=== PATIENT | male | born 1945 | race Caucasian/White ===

== ENCOUNTER 2019-01-06 11:25 | Day surgery (SDC) ==
[2018-12-25 14:23] LABS: INR 1.07; PROTIME 14.8 Seconds (11.0-16.0)
[2018-12-25 14:24] LABS: PTT 28.4 Seconds (22.3-41.8)
[2018-12-25 14:26] LABS: HEMATOCRIT 43.3 % (42.0-52.0); HEMOGLOBIN 14.2 g/dL (14.0-18.0); MCH 31.1 PG (27-31); MCHC 32.8 g/dL (33-37); MCV 94.7 FL (81-99); MPV 9.3 FL (7.4-10.4); RBC 4.57 XMIL (4.7-6.1); RDW 13.5 % (11.5-14.5); WBC 11.02 X1000 (4.8-10.8)
[2018-12-25 14:55] LABS: CALCIUM 9.2 mg/dL (8.8-10.2); CREATININE 1.8 mg/dL (0.7-1.2); POTASSIUM 4.9 mmol/L (3.5-5.1)
[~2019-01-06 11:25] MED LIST: DIPRIVAN 1% ONE; FENTANYL ONE; NORCURON ONE; QUELICIN (DOSE) ONE; SODIUM CHLORIDE 0.9% 10 ML ONE; XYLOCAINE-MPF 2% ONE
[2019-01-06] MEDS ORDERED: KEFZOL 1 GM/D5W 2 GM/100 ML IVPB ONE (12:29)
[2019-01-06] MEDS ORDERED: LR 500 ML ONE (12:29)
[2019-01-06] MEDS ORDERED: ROBINUL ONE ×2 (13:49→14:01)
[2019-01-06] MEDS ORDERED: NEOSTIGMINE ONE (14:01)
[2019-01-06] MEDS ORDERED: EPHEDRINE ONE (14:29)
[2019-01-06] MEDS ORDERED: NS 1,000 ML ONE (15:39)
--- NOTE | 2019-01-06 16:03 | Diag Imaging Result Doc PS360 ---
EXAM: CHEST-PORTABLE 01/06/2019 HISTORY: Post Nephro Rt TECHNIQUE: AP portable at 1552 COMMENT: There is cardiomegaly. There is increased pulmonary vascularity. There is apparent volume loss and opacity in the lingula and left lower lobe which are worse than on 06/20/2018. IMPRESSION: Atelectasis versus pneumonia in the lingula and left lower lobe. Cardiomegaly and possible mild pulmonary edema. Electronically signed by Low Urias 01/06/2019 4:00 PM
[2019-01-06] MEDS: DILAUDID ONE ×2 (16:35→16:40)
[2019-01-06] MEDS ORDERED: PHENERGAN PO PRN (16:45)
[2019-01-06] MEDS ORDERED: NORCO-5 PO PRN (16:45)
[2019-01-06] MEDS ORDERED: OFIRMEV 1000 MG/ISOTONIC SOLN 1,000 MG/100 ML BOTTLE IV PRN (16:45)
[2019-01-06] MEDS ORDERED: NORCO-7.5 PO PRN (16:45)
[2019-01-06] MEDS ORDERED: NS 1,000 ML IV SCH (16:45)
[2019-01-06] MEDS ORDERED: LABETALOL IV PRN (16:45)
[2019-01-06] MEDS ORDERED: ZOFRAN IV PRN (16:45)
[2019-01-06 17:02] LABS: HEMATOCRIT 40.1 % (42.0-52.0); MCH 30.6 PG (27-31); MCHC 32.4 g/dL (33-37); MCV 94.4 FL (81-99); MPV 9.1 FL (7.4-10.4); RBC 4.25 XMIL (4.7-6.1); RDW 13.5 % (11.5-14.5); WBC 11.21 X1000 (4.8-10.8)
[2019-01-06 17:25] LABS: CALCIUM 9.2 mg/dL (8.8-10.2); CREATININE 1.7 mg/dL (0.7-1.2)
[2019-01-06] MEDS: NORCO-10 PO PRN (19:57)
[2019-01-06] MEDS: DILAUDID IV PRN (20:29)
[2019-01-06] MEDS: COLACE PO SCH (20:29)
[2019-01-06] MEDS: KEFZOL 2 GM/D5W 2 GM/50 ML IVPB IV SCH (20:30)
[2019-01-06] MEDS: HUMALOG SUBQ SCH (23:43)
[2019-01-07] MEDS: DILAUDID IV PRN (00:17)
[2019-01-07] MEDS: KEFZOL 2 GM/D5W 2 GM/50 ML IVPB IV SCH (04:46)
[2019-01-07] MEDS: HUMALOG SUBQ SCH ×2 (07:45→11:56)
--- NOTE | 2019-01-07 08:29 | PROGRESS NOTE ---
DATE: 01/07/2019 SUBJECTIVE: The patient reports a good night overnight. His pain is adequately controlled. His Aguilar catheter was removed this morning. He had not voided yet. OBJECTIVE: Vital Signs: T 98.3 degrees, P 78, BP 136/83. His urine output was recorded in the amount of 753 mL. General: No acute distress. Abdomen: Nontender, nondistended. : Bladder nontender to palpation. Back: No CVA tenderness. Chromic sutures are intact with op site dressing over the incision. PERTINENT LABORATORY DATA: White cell count is 11,000. Hematocrit is 40 on 01/06/2019. Creatinine is 1.7. His chest x-ray on 01/06/2019 in the recovery room showing no evidence of pneumothorax. ASSESSMENT AND PLAN: A 73-year-old male status post right percutaneous nephrostolithotomy with cystoscopy and ureteral stent placement who is doing well. His labs are still pending. I have discussed with the patient that once he voids and continues to have adequate pain control, and his labs are okay, he will be ready for discharge. PLAN: 1. He will go home once voids. 2. He will go home with prescriptions for Percocet 10 p.r.n. (#15). Bactrim DS b.i.d. (#15). 3. Ditropan 5 mg 3 times a day as needed (#30). 4. I instructed him to resume his Eliquis on 01/10/2019. 5. I cleared him for his rehabilitation of his right knee starting 01/10/2019. 6. I will plan on seeing him in 9 to 10 days for cystoscopy with right ureteral stent removal in the office. cc: Paul Batres MD
[2019-01-07] MEDS: COLACE PO SCH (08:32)
[2019-01-07] MEDS: NORCO-10 PO PRN (11:02)
[2019-01-07 11:27] VITALS: BP 118/66
[2019-01-08] MEDS ORDERED: SPIRIVA INH SCH (07:30)
--- NOTE | 2019-02-18 14:21 | OPERATIVE NOTE ---
PROCEDURE DATE: 01/06/2019 SURGEON: Dr. Paul Batres. PREOPERATIVE DIAGNOSIS: Large right renal pelvis stones, abdominal pain, and microscopic hematuria. POSTOPERATIVE DIAGNOSIS: Large right renal pelvis stones, abdominal pain, and microscopic hematuria. PROCEDURES: Cystoscopy, placement of right ureteral catheter, antegrade percutaneous nephrostomy access, right percutaneous nephrostolithotomy, cystoscopy with right 6-Turkish-24 - cm ureteral stent placement in retrograde fashion. INDICATIONS: A 73-year-old male with medical comorbidities including COPD who had presented with microscopic hematuria and abdominal pain. He underwent imaging which revealed several large right renal pelvis stones. The largest stone was measured at 3.3 cm. He was counseled on staged ESWL versus PCNL versus observation versus a pyelolithotomy. He wants to proceed with PCNL. FINDINGS: The 3.[address] scan was actually several stones with the largest being approximately 2.5 cm. Multiple stone fragments were sent off for analysis. PROCEDURE IN DETAIL: After obtaining informed consent, patient was brought to the operating room. Perioperative antibiotics and general endotracheal anesthesia were administered. He was placed in modified frogleg position with his genitals prepped in sterile fashion. A 16-Turkish flexible cystoscope was used to gain access to the prostatic urethra and the bladder which were briefly examined. He had no evidence of obvious mucosal lesions. He had moderate trabeculations. No sizable diverticula. No stones seen within the bladder lumen. Attention was turned to the right ureteral orifice which was cannulated with a PTFE wire that was in turn advanced to presumed level of the renal pelvis. The flexible cystoscope was then removed, and a 5-Turkish open-ended ureteral catheter was advanced over the wire. Subsequent to that, a flexible cystoscope was reinserted adjacent to the open-ended ureteral catheter to confirm that there was no coiling in the bladder and the ureteral catheter was indeed in the ureter which it was. Following that, the cystoscope was removed. A 16-Turkish Aguilar catheter was introduced with 10 mL of sterile water placed in the balloon. Zero silk suture was used to secure the open-ended ureteral catheter to the Aguilar catheter. He was then placed in prone position making sure his upper and lower extremities were appropriately padded. He was reprepped and redraped. Fluoroscopy was used in anterior-posterior orientation as well as the 20 degree angle. We performed retrograde pyelogram by introducing 50% diluted Omnipaque dye via the previously placed open-ended ureteral catheter. It had delineated the large renal pelvis stones. We elected to use the right lower pole reddy for access. A finder needle was used to make a small stab incision in the skin and introduce it under fluoroscopic guidance into what appeared to be the tip of the lower pole reddy. We confirmed that by the return of light pink fluid consistent with bloody urine. This was followed by introduction of a Sensor wire. The undergraduate internship coiled up in the renal pelvis. Following that, the needle was removed, and the incision was extended to approximately 1.5 cm. I then used sequential dilators with 8, 10 and 12-Turkish sheaths with the tip of the sheath confirmed to come to the edge of the lower pole calyx by fluoroscopy. This was followed by introduction of the dual sheath catheter, and subsequent removal of the inner sheath. This allowed us to place a PTFE wire alongside of the Sensor wire hence given this one safety wire and one working wire. Following that, NephroMax balloon was used with its radio back tip introduced at the distal edge of the lower pole calyx to dilate the tract to 30-Turkish. This was again confirmed under fluoroscopy. I then introduced 30- Turkish resectoscope sheath. This was followed by introduction of a nephroscope via the sheath. We were fortunate and were at the right level in the lower pole looking at one of the smaller stones. Perc N [place] was used to remove a couple smaller stones. The larger stone was addressed with ultrasonic wand. As the stone was broken up, the fragments were evacuated. Upon completion and removal of all visible stones, I switched to a flexible cystoscope and perform an antegrade pyelogram. It revealed no evidence of sizable filling defects. I then examine each calyx under direct vision, and there was a 4 to 5 mm fragment that I was able to remove with 0 Nitinol basket. Following that, I examined the ureteropelvic junction. There was no evidence of stones within the UPJ area. There was no evidence of UPJ injury. The cystoscope and the resectoscope sheaths were then removed. 3-0 chromic sutures were used to closed the incision x3. He was then placed back on the stretcher in the lithotomy position, and moved back on the table. He was reprepped. A 21- Turkish rigid cystoscope was then used to gain access to the prostatic urethra and the bladder. I introduced the Sensor wire into the right ureteral orifice, and advanced it to the level of the renal pelvis as confirmed by fluoroscopy. In a standard fashion 6-Turkish, 24 cm stent was then placed over the wire via the cystoscope with the proximal coil position confirmed fluoroscopically and distal coil directly visualized. The string was detached from the stent. Aguilar catheter was then placed, and bladder was drained. He was extubated taken to PACU for further recovery. ESTIMATED BLOOD LOSS: 300 mL. COMPLICATIONS: None. DRAINS: 6-Turkish 24 cm ureteral stent and 16-Turkish Aguilar catheter. SPECIMENS: Multiple kidney stone fragments which were sent off for analysis. DISPOSITION: To PACU and subsequently floor with chest x-ray and blood work in PACU to rule out pneumothorax or significant bleeding. cc: Paul Batres MD
== END 2019-01-07 12:28 | disposition home or self-care (01) ==
LOC: 4N 11:25 → OR 11:25
PROVIDERS: ATTEND Urology
CPT/HCPCS: 71010; 71045; 76000; 80048; 82360; 82948; 85027; 85610; 85730; 87088; 88300; 94761; 94799; A9270; J0330; J0690; J1170; J2405; J3010; J7030; J7120; Q9966; Q9967; XXXXX

== ENCOUNTER 2019-01-28 09:34 | Inpatient (IN) ==
[2019-01-28] MEDS ORDERED: DUONEB (A & A) INH PRN (12:05)
[2019-01-28] MEDS ORDERED: VANCOMYCIN IV PER PHARMACY MISC SCH (12:15)
--- NOTE | 2019-01-28 12:27 | Diag Imaging Result Doc PS360 ---
CHEST-PORTABLE - 01/28/2019 INDICATION: Pneumonia COMPARISON: 01/06/2019 FINDINGS: Stable cardiomegaly and pulmonary vascular congestion. There has been slight improvement in the diffuse interstitial infiltrates/pulmonary edema, with some clearance of the right upper lobe. The lung bases remain stable. No significant pleural effusion. IMPRESSION: Improvement in the pulmonary edema. Electronically signed by Fred Pina 01/28/2019 12:25 PM
[2019-01-28 13:18] LABS: ALLEN TEST NO; BE 2.1 mmoll (-3.0-3.0); BLOOD TYPE ARTERIAL; HCO3-(ACT) 26.5 mmoll (20.0-26.0); O2(CT) 15.5 mL/dL (15.0-23.0); O2HB 94.1 % (95.0-99.0); PCO2(98.6) 33 mmHg (35-45); PO2(98.6) 70 mmHg (60-100); SAMPLE BLOOD; THB 11.7 g/dL (11.5-17.4); pH(98.6) 7.49 (7.35-7.45)
[2019-01-28 13:19] LABS: MODALITY CANNULA
[2019-01-28] MEDS: MAXIPIME 1 GM in NS 50 ML IV SCH ×2 (13:23→23:40)
[2019-01-28 13:43] LABS: BASO# 0.03 X1000 (0.0-0.2); BASO% 0.3 % (0.0-0.8); EOS# 0.16 X1000 (0.0-0.7); EOS% 1.5 % (0.0-10.0); HEMATOCRIT 36.4 % (42.0-52.0); HEMOGLOBIN 11.9 g/dL (14.0-18.0); IMM GRAN# 0.04 X1000 (0.0-0.04); IMM GRAN% 0.4 % (0.0-0.5); LYMPH# 0.99 X1000 (1.2-3.4); LYMPH% 9.3 % (20.5-51.1); MCH 30.4 PG (27-31); MCHC 32.7 g/dL (33-37); MCV 92.9 FL (81-99); MONO# 0.92 X1000 (0.11-0.59); MONO% 8.6 % (1.7-9.3); MPV 9.7 FL (7.4-10.4); NEUT# 8.51 X1000 (1.4-6.5); NEUT% 79.9 % (42.2-75.2); PLT 202 X1000 (130-400); RBC 3.92 XMIL (4.7-6.1); RDW 13.6 % (11.5-14.5); WBC 10.65 X1000 (4.8-10.8)
[2019-01-28 14:00] LABS: ALB/GLOB RATIO 0.8; ALBUMIN 3.4 g/dL (3.5-5.0); CALCIUM 9.3 mg/dL (8.8-10.2); CREATININE 1.6 mg/dL (0.7-1.2); POTASSIUM 4.6 mmol/L (3.5-5.1); TOTAL BILIRUBIN 0.38 mg/dL (0.20-1.00); TOTAL PROTEIN 7.6 g/dL (6.3-8.3)
--- NOTE | 2019-01-28 14:02 | EKG Report ---
Test Performed on : 01/28/2019 1:54:56 PM Test Reason : afib Blood Pressure : / mmHG Vent. Rate : 070 BPM Atrial Rate : 070 BPM P-R Int : 236 ms QRS Dur : 098 ms QT Int : 408 ms P-R-T Axes : 097 -48 -08 degrees QTc Int : 440 ms Sinus rhythm. with 1st degree AV block. Pulmonary disease pattern Left anterior fascicular block Abnormal ECG When compared with ECG of 12-MAR-2014 16:51, fusion complexes are no longer present MO interval has increased Vent. rate has decreased BY [address] now depressed in Inferior leads T wave inversion now evident in Inferior leads Confirmed by Becka EPPS, Campbell Joseph ([id number]) on 01/28/2019 5:31:47 PM
--- NOTE | 2019-01-28 14:13 | HISTORY AND PHYSICAL ---
CHIEF COMPLAINT: Direct admission from Dr. Mendez Fontenot with bilateral pneumonia and generalized weakness. HISTORY OF PRESENT ILLNESS: Mr. Loera is a 73-year-old, male who carries a past medical history of end-stage COPD, on home O2 at 2.5 L. He has had bilateral 1/3 lobectomies secondary to his emphysema, atrial fibrillation, on Eliquis, diabetes mellitus type 2, hypertension, dyslipidemia, osteoarthritis, recent right percutaneous nephrostolithotomy with cystoscopy and urethral stent placement and removal by Dr. Batres. He still has his stitches in place on his back. He is requesting to have those removed as well. He had a recent quadriceps tear from his right knee. He has been doing rehabilitation for that but over the past couple of weeks, he has had an increase in weakness with 2 reported falls at home. He has been treated for pneumonia by Dr. Mendez Fontenot. Imaging in his office revealed bilateral infiltrates, consistent with pneumonia. He has had a 12 pound weight loss in 3 months. He does report being cold with some chills but not necessarily rigors. He denied any fever. He is sleeping anywhere between 15 and 16 hours out of the day. He has been on Levaquin and clindamycin since the for his pneumonia. He continues to get worse. He does report a very productive cough. We will admit him and initiate him on broader spectrum antibiotics with his recent admission to the hospital, currently pending diagnostics and laboratory data. PAST MEDICAL HISTORY: 1. End-stage COPD, on home O2. 2. Atrial fibrillation, on Eliquis, status post ablation in May 2018. 3. Kidney stones. 4. Diabetes mellitus. 5. Hypertension. 6. Dyslipidemia. 7. Osteoarthritis. 8. Recent right quadriceps tear that has been recently operated on and finished rehab. 9. Diabetic neuropathy. 10. Chronic systolic congestive heart failure. 11. Chronic kidney disease stage 3. 12. Anemia. 13. Sleep apnea. 14. Bilateral carotid artery disease. PAST SURGICAL HISTORY: 1. Lung volume reduction surgery at [place] where 1/3 of his lung was removed to assist in his breathing. 2. Ablation in May 2018 for his atrial fibrillation. 3. Recent quadriceps tear to his right side. 4. Lithotripsy with stent removal by Dr. Batres. 5. Back surgery. 6. Right shoulder surgery. REVIEW OF SYSTEMS: Twelve-point review of systems completed and negative except for those mentioned in the HPI. MEDICATIONS: Home medications have not been verified. PHYSICAL EXAMINATION: VITAL SIGNS: Temperature is 97.8 degrees, respirations have not been recorded, heart rate is 65, blood pressure 111/50, O2 is 96% on 3 L nasal cannula. GENERAL: Mr. Loera is a [id number], 73-year-old, male who is sitting up on the bed in no acute distress, somewhat agitated but just ready to be over his illness. He just expresses concerns. HEENT: Atraumatic, normocephalic. PERRL. NECK: Supple. Trachea midline. CARDIOVASCULAR: S1, S2 appreciated. No murmurs, gallops, or rubs noted. RESPIRATORY: Lung sounds bilaterally decreased in the bases. Decreased air flow throughout. GASTROINTESTINAL: Soft, nontender, nondistended. Does complain of some right flank pain. : He reports leakage prior to just feeling the need to void. NEUROLOGIC: No focal deficits noted. However, he did complain of some dizziness over the weekend prior to one of his falls. LABORATORY AND DIAGNOSTIC DATA: Pending. ASSESSMENT AND PLAN: 1. Bilateral pneumonia, failed outpatient treatment. Patient did have a recent hospitalization. We will treat him with broad-spectrum antibiotics. CBC and CMP are currently pending. We have placed him on vancomycin and cefepime. Continue on supplemental oxygen, bronchodilators, and aggressive pulmonary toilet. 2. Atrial fibrillation. Patient is on Eliquis. We will continue any home medications as soon as they are verified. 3. End-stage chronic obstructive pulmonary disease, on home oxygen. We will continue with bronchodilators and supplemental oxygen. 4. Hypertension. 5. Hyperlipidemia. 6. Diabetes mellitus. We will continue on pattern of blood sugars and sliding scale insulin. 7. Recent kidney stone lithotripsy with Dr. Batres, status post stent removal on the right. He is complaining of right flank pain. We will check a urinalysis, possibly do a CT scan if he continues to complain of pain or if there are any signs of a urinary tract infection. 8. Generalized weakness over the last 2 weeks. The patient normally ambulates with a walker. However, he has had 2 falls over the weekend. He had a recent quadriceps tear with repair and has been working with physical therapy. He did get dizzy with one of the episodes of his falls but that resolved. We will consult physical therapy to work with the patient, possibly home with home health and physical therapy. 9. Further recommendations to follow physician evaluation, laboratory and diagnostic data. Dictated by JEANNETTE Garcia for Grady Deluna MD cc: MD Mendez Freed MD I have seen and examined Mr Loera who presents from Dr Fontenot office as a direct admit. He has presumably failed outpatient pneumonia treatment. I have reviewed his labs and imagining studies. I agree with the above HPI and the plan reflects my opinion discussed with the BEARING GRINDER. ROMIE BENDER
[2019-01-28] MEDS ORDERED: VANCOMYCIN 2,000 MG in NS 500 ML IV ONE (15:00)
[2019-01-28] MEDS: DUONEB (A & A) INH SCH ×3 (15:39→23:03)
[2019-01-28 17:39] LABS: URINE SOURCE CLEAN CATCH
[2019-01-28 17:42] LABS: BILIRUBIN URINE NEGATIVE (NEGATIVE); BLOOD URINE MODERATE (NEGATIVE); COLOR YELLOW; GLUCOSE URINE NEGATIVE (NEGATIVE); KETONE URINE NEGATIVE (NEGATIVE); LEUKOCYTES URINE LARGE (NEGATIVE); NITRITE URINE NEGATIVE (NEGATIVE); PH URINE 5.5; PROTEIN URINE 50 mg/dL (NEGATIVE); SP GRAVITY URINE 1.011; TURBIDITY URINE TURBID (CLEAR); UROBILINOGEN URINE NORMAL (NORMAL)
[2019-01-28] MEDS: HUMALOG SUBQ SCH ×2 (17:58→21:00)
[2019-01-28] MEDS: AVODART PO SCH (17:59)
[2019-01-28 18:09] LABS: UR EPITHELIAL CELLS <10 /HPF (<10); URINE BACTERIA NEGATIVE /HPF; URINE RBC <10 /HPF (<10); URINE WBC TNTC /HPF (<10)
[2019-01-28 18:11] LABS: URINE CASTS NONE SEEN; URINE CRYSTALS NONE SEEN; URINE YEAST PRESENT
[2019-01-28] MEDS: FLOMAX PO SCH (20:59)
[2019-01-28] MEDS ORDERED: RESTORIL PO ONE (21:53)
[2019-01-28] MEDS: NORCO-7.5 PO PRN (22:05)
[2019-01-29] MEDS: DUONEB (A & A) INH SCH ×4 (03:46→15:38)
[2019-01-29] MEDS: HUMALOG SUBQ SCH ×4 (06:16→21:54)
--- NOTE | 2019-01-29 06:46 | Diag Imaging Result Doc PS360 ---
CHEST-PORTABLE - 01/29/2019 INDICATION: Pneumonia COMPARISON: 01/28/2019 FINDINGS: Stable COPD. Stable surgical changes of the lung apices. There is improved aeration of the left lung base. No new infiltrates. No large pleural effusion. Heart size is normal. IMPRESSION: Improvement from prior. Electronically signed by Fred Pina 01/29/2019 6:43 AM
[2019-01-29] MEDS: AVODART PO SCH (08:08)
[2019-01-29 09:24] LABS: BASO# 0.03 X1000 (0.0-0.2); BASO% 0.3 % (0.0-0.8); EOS# 0.21 X1000 (0.0-0.7); EOS% 2.3 % (0.0-10.0); HEMATOCRIT 34.5 % (42.0-52.0); HEMOGLOBIN 11.4 g/dL (14.0-18.0); IMM GRAN% 0.6 % (0.0-0.5); LYMPH# 1.05 X1000 (1.2-3.4); LYMPH% 11.6 % (20.5-51.1); MCH 30.7 PG (27-31); MPV 9.6 FL (7.4-10.4); NEUT# 6.79 X1000 (1.4-6.5); NEUT% 75.2 % (42.2-75.2); PLT 198 X1000 (130-400); RBC 3.71 XMIL (4.7-6.1); RDW 13.6 % (11.5-14.5); WBC 9.03 X1000 (4.8-10.8)
[2019-01-29 09:25] LABS: IMM GRAN# 0.05 X1000 (0.0-0.04)
[2019-01-29 10:01] LABS: ALB/GLOB RATIO 0.8; ALBUMIN 3.1 g/dL (3.5-5.0); CALCIUM 9.1 mg/dL (8.8-10.2); CREATININE 1.6 mg/dL (0.7-1.2); POTASSIUM 3.8 mmol/L (3.5-5.1); TOTAL BILIRUBIN 0.39 mg/dL (0.20-1.00); TOTAL PROTEIN 6.9 g/dL (6.3-8.3)
[2019-01-29] MEDS ORDERED: RESTORIL PO PRN (12:17)
[2019-01-29] MEDS: MAXIPIME 1 GM in NS 50 ML IV SCH (12:39)
--- NOTE | 2019-01-29 14:50 | PROGRESS NOTE ---
DATE: 01/29/2019 SUBJECTIVE: This morning, Mr. Loera refers to be feeling a whole lot better. He thinks his wheezing and shortness of breath are improving. OBJECTIVE: Vital Signs: Blood pressure is 128/58, pulse of 71, respirations are 21, temperature is 98.5 degrees. General Examination: Mr. Loera was sitting up at the edge of the bed, was not in any distress. HEENT: Mucosa is pink and moist. Anicteric. Acyanotic. Neck: Supple. Chest: Good air entry bilaterally. There are still a few bilateral posterior crackles. Cardiovascular: Regular rate and rhythm. Abdomen: Soft. Minimally distended but nontender. Bowel sounds present. Extremities: No pedal edema. MANAGER REVIEW: The patient is awake, alert, and oriented. Laboratory Data: WBC is 9.03, hemoglobin is 11.4, platelet count 198,000. Chemistry is also reviewed. Creatinine is 1.6, which is the patient's baseline since 2018. ASSESSMENT: 1. Acute on chronic hypoxemic respiratory failure. 2. Bilateral pneumonia which failed outpatient treatment, seems to be improving. 3. Atrial fibrillation, currently rate controlled. 4. Severe end-stage chronic obstructive pulmonary disease. The patient is on home oxygen. 5. Diabetes mellitus, controlled. 6. Generalized weakness. We will continue with physical therapy. 7. Congestive heart failure with an ejection fraction of 30% to 35% in the setting of global hypokinesis. This was an echocardiogram in 2018. The patient did present with some pulmonary edema as well, which seems to be improving. A chest x-ray this morning shows improvement. PLAN: In general, Mr. Loera seems to be doing a lot better with IV antibiotics. He did fail outpatient p.o. treatment. We are going to continue another 48 hours with IV therapy and hopefully get him discharged tomorrow. cc: Grady Deluna MD [facility] SYSTEM[facility]
[2019-01-29] MEDS: NORCO-7.5 PO PRN (18:03)
[2019-01-29] MEDS: FLOMAX PO SCH (20:39)
[2019-01-29] MEDS ORDERED: MELATONIN PO SCH (21:00)
[2019-01-30] MEDS: MAXIPIME 1 GM in NS 50 ML IV SCH ×2 (00:15→13:23)
[2019-01-30] MEDS: NORCO-7.5 PO PRN (00:23)
[2019-01-30] MEDS: DUONEB (A & A) INH SCH ×4 (02:17→11:05)
[2019-01-30] MEDS ORDERED: VANCOMYCIN 1,750 MG in NS 250 ML IV SCH (03:00)
[2019-01-30] MEDS: HUMALOG SUBQ SCH ×2 (06:54→13:23)
[2019-01-30] MEDS: AVODART PO SCH (08:17)
[2019-01-30 08:37] LABS: ALBUMIN 3.6 g/dL (3.5-5.0); CALCIUM 9.5 mg/dL (8.8-10.2); CREATININE 1.7 mg/dL (0.7-1.2); PHOSPHORUS 3.3 mg/dL (2.7-4.5)
[2019-01-30 08:39] LABS: HEMOGLOBIN A1C 8.2 % (4.8-6.0)
[2019-01-30 11:36] VITALS: BP 142/70
[2019-01-30] MEDS ORDERED: DOXYCYCLINE PO SCH (21:00)
--- NOTE | 2019-01-31 04:51 | DISCHARGE SUMMARY ---
ADMISSION DATE: 01/28/2019 DISCHARGE DATE: 01/30/2019 DISPOSITION: Home. FOLLOW-UP: Dr. Mendez Fontenot. CONSULTATION DURING ADMISSION: None. IMAGING STUDIES OF SIGNIFICANCE: A chest x-ray on admission did show improvement in the pulmonary edema. A repeat chest x-ray showed continuous improvement. ADMISSION DIAGNOSES: 1. Bilateral pneumonia failed outpatient treatment. 2. Atrial fibrillation. 3. History of chronic obstructive pulmonary disease. 4. Diabetes mellitus. 5. Generalized weakness. DIAGNOSES AT TIME OF DISCHARGE: 1. Acute on chronic hypoxemic respiratory failure improved. 2. Bilateral pneumonia, which failed outpatient treatment. The patient responded to IV antibiotics, and has been switched to p.o. antibiotics. 3. Severe end-stage chronic obstructive pulmonary disease. We will continue on home 2 oxygen. 4. Diabetes mellitus controlled. 5. History of congestive heart failure with ejection fraction of 30 to 35 percent in the setting of global hypokinesis noted. 6. Chronic kidney disease stage 3D. DISCHARGE MEDICATIONS: 1. Tamsulosin 0.4 p.o. done at bedtime. 2. Gabapentin 600 p.o. daily. 3. Insulin lispro use as directed. 4. Furosemide 20 mg p.o. p.r.n. 5. Novolin N 2.5 to 10 units as needed. 6. Apixaban 5 mg b.i.d. 7. Lactobacillus. 8. Pravastatin 40 mg p.o. daily. 9. Spiriva 18 mcg inhaler p.r.n. 10. Diltiazem 30 p.o. b.i.d. 11. Symbicort. 12. Melatonin 3 mg p.o. at bedtime. 13. Avodart 0.5 p.o. daily. 14. Doxycycline 100 mg b.i.d. PRESENTING COMPLAINT: Failed outpatient treatment for bilateral pneumonia. HISTORY OF PRESENTING COMPLAINT: Mr. Loera is a 73-year-old male who is known to have COPD on home 2 oxygen. He came to the emergency department after he was treated on [address] Fontenot's office for pneumonia. Patient continues to have symptoms including dyspnea, cough, expectoration, and some chills. The patient's initial chest x-ray did not show any consolidation. We think he probably had an exacerbation of his COPD. He was directly admitted and was started on IV antibiotics. HOSPITAL COURSE: Mr. Loera did improve remarkably during the hospital course with IV antibiotics. He was also seen by Respiratory Therapy and Physical Therapy. This morning he refers to be feeling a whole lot better. Shortness of breath has significantly improved. The patient is tolerating the 2.5 L of nasal cannula that he normally does at home. We think he is fairly stable for discharge. All the discharge instructions have been discussed with him. He has been transitioned to oral antibiotics. The patient will follow up with his primary care doctor. TIME SPENT FOR DISCHARGE: 35 minutes. cc: MD Mendez Freed MD
== END 2019-01-30 14:22 | disposition home health service (06) | DRG 177 ==
LOC: DIRADM 09:34 → 3N 10:30
PROVIDERS: ATTEND Internal Medicine
CPT/HCPCS: 71010; 71045; 80053; 80069; 81001; 82805; 82948; 83036; 83605; 85025; 87040; 87070; 87088; 87205; 93005; 93010; 94640; 94761; 94799; 97162; 97530; A9270; J0692; J1815; J3370; J7040; J7050; XXXXX